=== PATIENT | male | born 1950 | race African-American/Black ===

== ENCOUNTER 2017-01-19 10:27 | Emergency (ER) | payer MEDICARE, OTHER ==
[~2017-01-19] VITALS: Ht 180.3 cm; Wt 109.0 kg
[2017-01-19] MEDS ORDERED: ATOR20TA65 PO (10:35)
[2017-01-19] MEDS ORDERED: LOSA50TA20 PO (10:35)
[2017-01-19] MEDS ORDERED: CLOP75TA33 PO (10:35)
[2017-01-19] MEDS ORDERED: TURM1CAP PO (10:35)
[2017-01-19] MEDS ORDERED: ASPI-1159 PO (10:35)
[2017-01-19 11:16] LABS: BASOPHILS % 0.6 % (0.0-2.0); EOSINOPHILS % 1.4 % (0.0-5.0); HEMATOCRIT. 42.1 % (42.0-52.0); HEMOGLOBIN. 14.1 g/dL (14.0-18.0); LYMPHOCYTES % 24.7 % (20.0-50.0); MEAN CORPUSCULAR VOLUME 89.9 fL (80.0-94.0); MEAN PLATELET VOLUME 8.4 fl (7.4-10.4); MONOCYTES % 7.6 % (2.0-8.0); NEUTROPHILS % 65.7 % (40.0-76.0); PLATELET 158 x1000/uL (130-400); RED BLOOD CELL COUNT 4.69 mill/uL (4.7-6.1); RED CELL DISTRIBUTION WIDTH 14.7 % (11.6-14.6)
[2017-01-19 11:28] LABS: CARBON DIOXIDE 25 mEq/L (21-32); CHLORIDE 108 mEq/L (98-107)
[2017-01-19 12:04] VITALS: BP 120/70
== END 2017-01-19 12:07 | disposition home or self-care (01) ==
LOC: ER 11:41
DX: R53.1 Weakness (principal); E78.00 Pure hypercholesterolemia, unspecified; I10 Essential (primary) hypertension; I25.10 Atherosclerotic heart disease of native coronary artery without angina pectoris; Z79.82 Long term (current) use of aspirin; Z95.5 Presence of coronary angioplasty implant and graft
CPT/HCPCS: 36415; 80053; 85025; 93005; 99285

== ENCOUNTER 2017-03-04 19:29 | Emergency (ER) | payer OTHER ==
[~2017-03-04] VITALS: Ht 175.3 cm; Wt 106.0 kg
[~2017-03-04 19:29] MED LIST: ASPI-1159 PO; ATOR20TA65 PO; CLOP75TA33 PO; LOSA50TA20 PO; TURM1CAP PO
[2017-03-04 19:57] VITALS: BP 138/97
== END 2017-03-04 20:48 | disposition home or self-care (01) ==
LOC: ER 19:29
DX: I10 Essential (primary) hypertension (principal); I25.2 Old myocardial infarction; Z79.82 Long term (current) use of aspirin; Z95.5 Presence of coronary angioplasty implant and graft
CPT/HCPCS: 99283

== ENCOUNTER 2018-03-25 14:18 | Emergency (ER) | payer MEDICARE, OTHER ==
[~2018-03-25] VITALS: Ht 175.3 cm; Wt 112.0 kg
[2018-03-25] MEDS ORDERED: ASPIRIN 81MG TABLET PO ONE (15:00)
[2018-03-25 15:11] LABS: BASOPHILS % 0.7 % (0.0-2.0); EOSINOPHILS % 1.2 % (0.0-5.0); HEMATOCRIT. 42.5 % (42.0-52.0); HEMOGLOBIN. 14.6 g/dL (14.0-18.0); LYMPHOCYTES % 33.6 % (20.0-50.0); MEAN CORPUSCULAR HEMOGLOBIN 31.9 pg (28.0-32.0); MEAN CORPUSCULAR VOLUME 93.1 fL (80.0-94.0); MEAN PLATELET VOLUME 9.3 fl (7.4-10.4); MONOCYTES % 8.9 % (2.0-8.0); NEUTROPHILS % 55.6 % (40.0-76.0); PLATELET 187 x1000/uL (130-400); RED BLOOD CELL COUNT 4.57 mill/uL (4.7-6.1); RED CELL DISTRIBUTION WIDTH 14.1 % (11.6-14.6)
[2018-03-25 15:16] LABS: CHLORIDE 105 mEq/L (98-107)
[2018-03-25 20:28] VITALS: BP 120/74
== END 2018-03-25 20:28 | disposition left against medical advice (07) ==
LOC: ER 14:18 → EDBEDREQ 20:16 → ER 20:28 → CANBEDREQ 21:19
DX: R07.89 Other chest pain (principal); I25.2 Old myocardial infarction; I11.9 Hypertensive heart disease without heart failure; E78.5 Hyperlipidemia, unspecified; Z98.61 Coronary angioplasty status; Z79.82 Long term (current) use of aspirin; Z79.899 Other long term (current) drug therapy
CPT/HCPCS: 36415; 71045; 83880; 84484; 93005; 99284

== ENCOUNTER 2019-05-30 21:39 | Emergency (ER) | payer MEDICARE ==
[~2019-05-30] VITALS: Ht 180.3 cm; Wt 108.0 kg
[~2019-05-30 21:39] MED LIST changes: -ASPI-1159 PO; +ASPI-1497 PO; -LOSA50TA20 PO; +LOSA50TA41 PO
[2019-05-30] MEDS ORDERED: IBUPROFEN 600MG TABLET PO ONE (23:45)
[2019-05-31 02:50] VITALS: BP 140/83
== END 2019-05-31 03:12 | disposition home or self-care (01) ==
LOC: ER 21:39
DX: M25.511 Pain in right shoulder (principal); I10 Essential (primary) hypertension; I25.2 Old myocardial infarction; Z98.61 Coronary angioplasty status; Z79.82 Long term (current) use of aspirin; Z79.899 Other long term (current) drug therapy
CPT/HCPCS: 71045; 73030; 73130; 73610; 93005; 99283